=== PATIENT | male | born 1950 | race Caucasian/White ===

== ENCOUNTER 2024-12-11 09:48 | Outpatient (OUT) | payer MEDICARE, SELFPAY ==
--- NOTE | 2024-12-11 | XR_ITS ---
The [address] [address] Patient Name: GRAY MOORE MRN: [id number] date: 1950 Sex: M Assigned Patient Location: [facility] Current Patient Location: [facility] Accession/Order Number: [id number] Exam Date: 12/11/2024 10:54 Report Date: 12/11/2024 10:55 At the request of: PAUL WOLFE DO Procedure: XR shoulder RT min 2V RIGHT SHOULDER - - 3 views CLINICAL HISTORY: Right Shoulder Pain COMPARISON: 11/12/2024 FINDINGS: Moderate before meals and glenohumeral joint degenerative changes. No fracture dislocation identified. Right lung is apex clear. XR/XR shoulder RT min 2V IMPRESSION: Degenerative changes without evidence acute osseous abnormality. Impression dictated by: Edgar Randle M.D. 12/11/2024 10:55 AM Dictation Location: [place] [address] Electronically authenticated by: [id number] Y Date: 12/11/2024 10:55
--- OUTSIDE RECORDS SUMMARY | 2024-12-11 09:50 | XMS_ITS | Clinical Summary ---
Author Organization [facility] Address [address] [place] [address] Phone Care Team Providers Care Moss Gatherer Name Role Phone Greg Kat DO Primary Care Provider [phone] Social History Tobacco Use Types Packs/Day Years Used Date Smoking Tobacco: Never Assessed Sex and Gender Information Value Date Recorded Sex Assigned at Not on file Legal Sex Male 11:05 AM EST Gender Identity Not on file Sexual Orientation Not on file Last Filed Vital Signs Vital Sign Reading Time Taken Comments Blood Pressure 161/98 07/09/2021 9:36 AM EDT Pulse - - Temperature 36.5 C (97.7 F) 07/09/2021 9:36 AM EDT Respiratory Rate - - Oxygen Saturation - - Inhaled Oxygen Concentration - - Weight 105 kg (232 lb) 07/09/2021 9:36 AM EDT Height 175.3 cm (5' 9 ) 07/09/2021 9:36 AM EDT Body Mass Index 34.26 07/09/2021 9:36 AM EDT Plan of Treatment Health Maintenance Due Date Last Done Comments CT Colonography 1950 Colonoscopy 1950 Colorectal Cancer Screening 1950 FIT-DNA (Cologuard) 1950 FIT 1950 Lipid Panel 1950 Medicare Annual Wellness Vis it (AWV) 1950 Sigmoidoscopy 1950 MMR Vaccines (1 of 1 - Stand luis m series) 10/16/1952 Hepatitis C Screening 10/16/1969 DTaP/Tdap/Td Vaccines (1 - Tdap) 10/16/1973 Pneumococcal Vaccine (1 of 1 - PCV) 10/16/2001 Zoster Vaccines (1 of 2) 10/16/2001 COVID-19 Vaccine (1 - 2023-2 5 season) 2023 Influenza Vaccine (#1) 2024 RSV High Risk: (Elderly (60+ ) or Population) (1 - 1-dose 75+ series) 10/16/2026 HIB Vaccines Aged Out No longer eligi ble based on patient's age to complete this topic HPV Vaccines Aged Out No longer eligi ble based on patient's age to complete this topic Hepatitis A Vaccines Aged Out No long er eligible based on patient's age to complete this topic Hepatitis B Vaccines Aged Out No long er eligible based on patient's age to complete this topic IPV Vaccines Aged Out No longer eligi ble based on patient's age to complete this topic Meningococcal Vaccine Aged Out No job lauren eligible based on patient's age to complete this topic Rotavirus Vaccines Aged Out No longer eligible based on patient's age to complete this topic Insurance Care Teams Moss Gatherer Relationship Specialty Start Date End Date Greg Kat DO PCP - General 07/09/21
--- OUTSIDE RECORDS SUMMARY | 2024-12-11 09:50 | XMS_ITS | Clinical Summary ---
Author Organization [facility] Address [address] [place] [address] Care Team Providers Care Telephone Diaphragm Assembler Name Role Phone Greg Kat Sheryl MATTHEWS Primary Care Provider [phone] Van Holden MD Unavailable [phone] Allergies No known active allergies Medications allopurinol (ZYLOPRIM) 100 mg tablet Active U57-wejaoaujidyw ydrofolate-B6 1,000mcg-680mcg DFE-1.5 mg chew Acti ve zolpidem (AMBIEN) 10 mg Take 10 mg by mouth two times a day. Active VITAMIN E ACETATE ORAL Take by mouth. 02/08/2023 Active cholecalciferol, vitamin D3, (VITAMIN D-3) 10 mcg (400 unit) cap Take 1,000 mg by mouth one time a week. Active simvastatin (ZOCOR) 10 mg tablet Active Metoprolol-hydro CHLOROthiazide 100-25 mg per tablet 100 mg. Active meloxicam (MOBIC) 15 mg tablet Take 15 mg by mouth once daily. Active Active Problems No known active problems Encounters Date Type Department Care Team Description 11/17/2024 Travel from Last 3 Months Social History Tobacco Use Types Packs/Day Years Used Date Smoking Tobacco: Former Cigarettes 1 1 0 04/1982 - 04/1983 Passive Smoke Exposure: Past Smokeless Tobacco: Never Tobacco Cessation:Counseling Given: Not Answered Alcohol Use Standard Drinks/Week Comments Not Currently 0 (1 standard drink = 0.6 oz pur e alcohol) PHQ-2 Answer Date Recorded PHQ-2 score 0 06/08/2023 Area Deprivation Index Answer Date Roebrt rded National Score (1-100), lower number is lower ri sk 54 06/11/2023 State Score (1-10), lower number is lower risk 3 06/11/2023 Data from: https://www.neighborhoodatlas.medicine.[facility].edu/. Last address used for calculation [address] 06/11/2023 Sex and Gender Information Value Date Recorded Sex Assigned at Male 05/25/2023 8:39 AM EST Legal Sex Male 10:13 AM EST Gender Identity Male 05/25/2023 8:39 AM EST Sexual Orientation Straight 05/25/2023 8: 39 AM EST Last Filed Vital Signs Vital Sign Reading Time Taken Comments Blood Pressure 162/94 03/21/2024 9:59 AM EST repeat 154/98 Pulse 61 03/21/2024 9:59 AM EST Temperature 36.7 C (98.1 F) 03/21/2024 9:59 AM EST Respiratory Rate 16 03/21/2024 9:59 AM EST Oxygen Saturation 97% 03/21/2024 9:5 9 AM EST Inhaled Oxygen Concentration - - Weight 107.7 kg (237 lb 7 oz) 9:59 AM EST Height 175.3 cm (5' 9 ) 03/21/2024 9:59 AM EST Body Mass Index 35.06 03/21/2024 9:59 AM EST Plan of Treatment Health Maintenance Due Date Last Done Comments Abdominal Aortic Aneurysm Screening 1950 Anxiety Screening 10/16/1969 Depression Screening 10/16/1969 Hepatitis C Screening 10/16/1969 DTaP,Tdap,Td Vaccine (1 - Tdap) 10/16/1970 Lipid Screening 10/16/1986 CT Colonography 10/16/1996 Cologuard (FIT-DNA) 10/16/1996 Colonoscopy 10/16/1996 Colorectal Cancer Screening 10/16/1996 Diabetes Screening 10/16/1996 Fecal Occult Blood 10/16/1996 Sigmoidoscopy 10/16/1996 Advance Directive Discussion 04/26/2024 Medicare Advantage Annual We llness Visit 04/26/2024 Influenza Vaccine (#1) 2024 , 02/23/2023, 01/09/2022, Additional history exists RSV Vaccine (1 - 1-dose 75+ series) 10/16/2026 Shingrix Vaccine Completed 03/29/2020, 01/31/2020 Pneumococcal Vaccine: 50+ Completed 01/09/2022, 10/2019 Procedures Procedure Name Priority Date/Time Associated Diagnosis Comments XR OUTSIDE CD DICOM IMPORT 11/12/2024 from Last 3 Months Results * DX-XR Shoulder Complete Right IMPORT (11/12/2024) Anatomical Region Laterality Modality Other 11/12/2024 Narrative 11/16/2024 12:38 AM EDT Images were obtained outside of [facility] Procedure Note Provider, [facility] [place] - 11/16/2024 Images were obtained outside of [facility] Cc Provider RADIOLOGY Final Result from Last 3 Months Insurance [facility] MEDICARE ADVANTAGE PPO Care Teams Telephone Diaphragm Assembler Relationship Specialty Start Date End Date Greg Kat DO PCP - General Family Medicine 04/16/11 Van Holden MD [address] [place] [address] Referring Urology 03/14/24
--- OUTSIDE RECORDS SUMMARY | 2024-12-11 09:50 | XMS_ITS | Encounter Summary ---
Author Organization [facility] Address [address] [place] [address] Care Team Providers Care Tsa Screener Name Role Phone Greg Kat Sheryl MATTHEWS Primary Care Provider Van Holden MD Unavailable [phone] Source Comments In the event this information is protected by the Federal Confidentiality of Alcohol and Drug AbusePatient Records regulations: The Federal rules restrict any use of the information to criminally investigate or prosecute any alcohol or drug abuse patient.[facility] Encounter Details Date Type Department Care Team (Late st Contact Info) Description 03/14/2024 Patient Msg Referring Physician [address] [place] [phone] Provider, [facility] Referral Social History Tobacco Use Types Packs/Day Years Used Date Smoking Tobacco: Former Cigarettes 1 1 0 04/1982 - 04/1983 Passive Smoke Exposure: Past Smokeless Tobacco: Never Alcohol Use Standard Drinks/Week Comments Not Currently 0 (1 standard drink = 0.6 oz pur e alcohol) PHQ-2 Answer Date Recorded PHQ-2 score 0 06/08/2023 Area Deprivation Index Answer Date Robert rded National Score (1-100), lower number is lower ri sk 54 06/11/2023 State Score (1-10), lower number is lower risk 3 06/11/2023 Data from: https://www.neighborhoodatlas.medicine.[facility].edu/. Last address used for calculation [address] 06/11/2023 Sex and Gender Information Value Date Recorded Sex Assigned at Male 05/25/2023 8:39 AM EST Legal Sex Male 10:13 AM EST Gender Identity Male 05/25/2023 8:39 AM EST Sexual Orientation Straight 05/25/2023 8: 39 AM EST documented as of this encounter Plan of Treatment Not on file documented as of this encounter Visit Diagnoses Not on filedocumented in this encounter Care Teams Tsa Screener Relationship Specialty Start Date End Date Greg Kat DO PCP - General Family Medicine 04/16/11 Van Holden MD [address] [place] [address] Referring Urology 03/14/24 documented as of this encounter
--- OUTSIDE RECORDS SUMMARY | 2024-12-11 09:50 | XMS_ITS | Clinical Summary ---
Author Organization [facility] Address [address] [place] [address] Care Team Providers Care Pre Billing Specialist Name Role Phone Greg Kat MD Primary Care Provider [phone] Allergies No known active allergies Medications metoprolol tartrate (Lopressor) 100 MG tablet every 12 (twelve) hours Active simvastatin (Zocor) 10 MG tablet 1 (one) time each day at the same time Active zolpidem (Ambien) 10 MG tablet 1 (one) time each day at the same time Active alpha tocopherol (Vitamin E) 400 units capsule Take 400 Units by mouth Daily Active cyanocobalamin (Vitamin B-12) 1000 MCG tablet Take 1,000 mcg by mouth Daily Active cholecalciferol (Vitamin D-3) 25 MCG (1000 UT) capsule Take 1,000 Units by mouth Daily Active aspirin 81 MG EC tablet Take 81 mg by mouth Daily Active omeprazole (PriLOSEC) [address] capsule 03/28/2023 Active meloxicam (Mobic) 7.5 MG tablet Take by mouth Active Active Problems No known active problems Encounters Date Type Department Care Team Description 12/09/2024 Travel from Last 3 Months Social History Tobacco Use Types Packs/Day Years Used Date Smoking Tobacco: Former Cigarettes Q uit: 1986 Smokeless Tobacco: Never Tobacco Cessation:Counseling Given: Not Answered Alcohol Use Standard Drinks/Week Comments Not Currently 0 (1 standard drink = 0.6 oz pur e alcohol) Sex and Gender Information Value Date Recorded Sex Assigned at Not on file Legal Sex Male 6:48 PM EDT Gender Identity Not on file Sexual Orientation Not on file Travel History Travel Start Travel End [place] 11/25/2024 11/28/2024 Last Filed Vital Signs Vital Sign Reading Time Taken Comments Blood Pressure 136/88 03/14/2021 12:00 PM EST Pulse - - Temperature 36.2 C (97.1 F) 04/22/2023 8:27 AM EST Respiratory Rate - - Oxygen Saturation - - Inhaled Oxygen Concentration - - Weight 109 kg (241 lb) 05/18/2023 1:39 PM EST Height 172.7 cm (5' 8 ) 05/18/2023 1:39 PM EST Body Mass Index 36.64 05/18/2023 1:39 PM EST Plan of Treatment Upcoming Encounters Date Type Department Care Team (Late st Contact Info) Description 12/12/2024 8:45 AM EDT Procedure Visit [facility] [address] [place] [phone] Alonso Collins DPM [address] [place] [address] 09/04/2025 8:30 AM EDT Office Visit [facility] [address] [place] [phone] Nimco Jacobs MD [address] [place] [address] Health Maintenance Due Date Last Done Comments CT Colonography 1950 Colonoscopy 1950 Colorectal Cancer Screening 1950 FIT-DNA 1950 FIT 1950 FOBT 1950 Sigmoidoscopy 1950 Influenza Vaccine (#1) 2024 4, 02/23/2023, 01/09/2022, Additional history exists Pneumococcal Vaccine: 65+ Years Completed 2, 01/31/2020 Insurance [employer] MEDICARE Care Teams Pre Billing Specialist Relationship Specialty Start Date End Date Greg Kat MD [address] [place] [address], [place] [address] PCP - General Family Medicine 04/22/23
--- OUTSIDE RECORDS SUMMARY | 2024-12-11 09:50 | XMS_ITS | Encounter Summary ---
Author Organization [facility] Address [address] [place] [address] Care Team Providers Care Dairy Processing Supervisor Name Role Phone Greg Kat MD Primary Care Provider [phone] Encounter Details Date Type Department Care Team (Latest Contact Info) Description 12/09/2024 Travel Social History Tobacco Use Types Packs/Day Years Used Date Smoking Tobacco: Former Cigarettes Q uit: 1986 Smokeless Tobacco: Never Alcohol Use Standard Drinks/Week Comments Not Currently 0 (1 standard drink = 0.6 oz pur e alcohol) Sex and Gender Information Value Date Recorded Sex Assigned at Not on file Legal Sex Male 6:48 PM EDT Gender Identity Not on file Sexual Orientation Not on file Travel History Travel Start Travel End [place] 11/25/2024 11/28/2024 documented as of this encounter Plan of Treatment Upcoming Encounters Date Type Department Care Team (Late st Contact Info) Description 12/12/2024 8:45 AM EDT Procedure Visit [facility] [address] [place] [address] Alonso Collins DPM [address] [place] [address] 09/04/2025 8:30 AM EDT Office Visit [facility] [address] [place] [address] Nimco Jacobs MD [address] [place] [address] documented as of this encounter Visit Diagnoses Not on filedocumented in this encounter Care Teams Dairy Processing Supervisor Relationship Specialty Start Date End Date Greg Kat MD [address] [place] [address] [place] [address] PCP - General Family Medicine 04/22/23 documented as of this encounter
== END 2024-12-11 09:49 | disposition home or self-care (01) ==
LOC: RAD 09:48
PROVIDERS: PCP Family Medicine; Visit Provider Orthopaedic Surgery Orthopaedic Trauma
DX: M25.511 Pain in right shoulder (principal)
CPT/HCPCS: 73030